=== PATIENT | male | born 1945 | race Caucasian/White ===

== ENCOUNTER 2018-10-03 06:59 | Inpatient (IN) ==
[2018-10-03] MEDS ORDERED: MORPHINE 4 MG/1 ML VIAL ONE (07:09)
[2018-10-03] MEDS ORDERED: HEPARIN 5,000 UNIT/1 ML VIAL ONE ×2 (07:09→07:51)
[2018-10-03] MEDS ORDERED: ONDANSETRON 4 MG/2 ML VIAL ONE (07:09)
[2018-10-03] MEDS ORDERED: NITROGLYCERIN SL 0.4 MG TABLET SL PRN (07:14)
[2018-10-03] MEDS ORDERED: ASPIRIN 325 MG TABLET PO STA (07:14)
[2018-10-03] MEDS ORDERED: MORPHINE 4 MG/1 ML VIAL IV STA (07:14)
[2018-10-03] MEDS ORDERED: SODIUM CHLORIDE 0.9% 500 ML IV STA (07:14)
[2018-10-03] MEDS ORDERED: HEPARIN 5,000 UNIT/1 ML VIAL IV ONE (07:14)
[2018-10-03] MEDS ORDERED: ONDANSETRON 4 MG/2 ML VIAL IV STA (07:14)
[2018-10-03] MEDS ORDERED: MIDAZOLAM 2 MG/2 ML VIAL ONE (07:39)
[2018-10-03] MEDS ORDERED: LIDOCAINE 1% 20 ML VIAL ONE (07:39)
[2018-10-03] MEDS ORDERED: fentaNYL 100 MCG/2 ML VIAL ONE (07:39)
[2018-10-03] MEDS ORDERED: TIROFIBAN 5,000 MCG/100 ML PREMIX IV ONE (07:50)
[2018-10-03 07:54] LABS: Basophils # 0.1 10*3/uL (0.0-0.2); Basophils % 0.6 % (0.0-0.8); Eosinophils # 0.7 10*3/uL (0.0-0.87); Eosinophils % 6.3 % (0.00-10.9); Hematocrit 46.3 VOL% (42.0-52.0); Hemoglobin 15.3 GM/DL (14.0-18.0); Immature Granulocytes % 0.5 %; Immature Granulocytes Absolute 0.05 #; Lymphocytes # 3.8 10*3/uL (1.4-4.0); Lymphocytes % 36.5 % (21.2-54.2); Mean Corpuscular Hemoglobin 29 PG (27-34); Mean Corpuscular Volume 87.5 FL (87-102); Mean Platelet Volume 9.5 FL (9.6-12.0); Monocytes # 1.3 10*3/uL (0.11-0.8); Monocytes % 12.2 % (1.7-12.7); Neutrophils # 4.5 10*3/uL (1.4-7.4); Neutrophils % 43.9 % (38.7-73.9); Platelet Count 264 T/CUMM (130-400); Red Blood Count 5.29 MC/CUMM (3.8-5.5); Red Cell Distribution Width 12.4 % (9.3-17.3); White Blood Count 10.3 T/CUMM (4-12)
[2018-10-03] MEDS ORDERED: AMIODARONE 150 MG/3 ML VIAL ONE (07:57)
[2018-10-03 08:00] LABS: INR 0.9; Partial Thromboplastin Time 25.7 SECS (0-40)
[2018-10-03] MEDS ORDERED: TIROFIBAN 5,000 MCG/100 ML PREMIX IV SCH (08:00)
[2018-10-03] MEDS ORDERED: DOCUSATE SODIUM 100 MG CAPSULE PO PRN (08:05)
[2018-10-03] MEDS ORDERED: MAGNESIUM SULF RIDER 4 GM in PREMIX 1 EACH IV PRN (08:05)
[2018-10-03] MEDS ORDERED: ONDANSETRON 4 MG/2 ML VIAL IV PRN (08:05)
[2018-10-03] MEDS ORDERED: guaiFENesin/DM ER 600-30 MG TABLET PO PRN (08:05)
[2018-10-03] MEDS ORDERED: diphenhydrAMINE CAP 25 MG CAPSULE PO PRN (08:05)
[2018-10-03] MEDS ORDERED: BISACODYL 5 MG TABLET PO PRN (08:05)
[2018-10-03] MEDS ORDERED: POTASSIUM CHLORIDE 20 MEQ TABLET PO PRN (08:05)
[2018-10-03] MEDS ORDERED: LACTULOSE 20 GM/30 ML UDCUP PO PRN (08:05)
[2018-10-03] MEDS ORDERED: PROMETHAZINE 25 MG TABLET PO PRN (08:05)
[2018-10-03] MEDS ORDERED: MAGNESIUM SULF RIDER 2 GM in PREMIX 1 EACH IV PRN (08:05)
[2018-10-03] MEDS ORDERED: ZALEPLON 5 MG CAPSULE PO PRN (08:05)
[2018-10-03] MEDS ORDERED: ACETAMINOPHEN 325 MG TABLET PO PRN (08:05)
[2018-10-03 08:11] LABS: Albumin 3.9 G/DL (3.4-5.0); Bilirubin,Total 0.6 MG/DL (0.2-1.0); Calcium 9.6 MG/DL (8.5-10.1); Potassium 3.8 MMOL/L (3.5-5.1); Total Protein 7.2 G/DL (6.4-8.3)
[2018-10-03] MEDS ORDERED: TICAGRELOR 90 MG TABLET ONE (08:26)
[2018-10-03 08:30] LABS: Risk Ratio 4.18; VLDL CHOLESTEROL 34.4 MG/DL
[2018-10-03] MEDS ORDERED: SODIUM CHLORIDE 0.45% 1,000 ML IV SCH (08:30)
[2018-10-03] MEDS ORDERED: NON-FORMULARY MEDICATION (Esomeprazole Magnesium [Nexium] 40 MG) PO SCH (09:00)
[2018-10-03] MEDS ORDERED: SODIUM CHLORIDE 0.9% 1,000 ML IV SCH (09:26)
[2018-10-03] MEDS: MULTIVITAMIN (CENTRUM) TABLET PO SCH (10:30)
[2018-10-03] MEDS: ASCORBIC ACID 500 MG TABLET PO SCH (10:30)
[2018-10-03] MEDS: PANTOPRAZOLE 40 MG TABLET PO SCH (10:51)
[2018-10-03] MEDS: MOMETASONE 50 MCG NASAL SPRAY 17 GM BOTTLE BOTH NARES SCH ×2 (10:51→21:15)
[2018-10-03] MEDS: CHOLECALCIFEROL 1,000 UNIT TABLET PO SCH (10:51)
[2018-10-03] MEDS: CARVEDILOL 3.125 MG TABLET PO SCH ×3 (10:51→21:16)
[2018-10-03] MEDS: CAPTOPRIL 6.25 MG TABLET PO SCH ×2 (10:52→17:40)
[2018-10-03 14:09] LABS: CKMB % 13.4 %
[2018-10-03 20:59] LABS: CKMB % 12.4 %
[2018-10-03] MEDS ORDERED: ASPIRIN EC 81 MG TABLET PO SCH (21:00)
[2018-10-03 21:03] LABS: Troponin I 28.5 NG/ML (0.00-0.045)
[2018-10-03] MEDS: ATORVASTATIN 40 MG TABLET PO SCH (21:16)
[2018-10-03] MEDS: TICAGRELOR 90 MG TABLET PO SCH (21:16)
[2018-10-03] MEDS: OMEGA 3 ACID ETHYL ESTERS 1 GM CAPSULE PO SCH (21:16)
[2018-10-04] MEDS: CAPTOPRIL 6.25 MG TABLET PO SCH ×2 (02:01→09:00)
[2018-10-04] MEDS: CARVEDILOL 3.125 MG TABLET PO SCH ×4 (03:29→21:46)
[2018-10-04 05:11] LABS: Basophils % 0.5 % (0.0-0.8); Eosinophils # 0.2 10*3/uL (0.0-0.87); Eosinophils % 2.5 % (0.00-10.9); Hematocrit 37.4 VOL% (42.0-52.0); Hemoglobin 12.6 GM/DL (14.0-18.0); Immature Granulocytes % 0.5 %; Immature Granulocytes Absolute 0.04 #; Lymphocytes # 1.3 10*3/uL (1.4-4.0); Lymphocytes % 15.1 % (21.2-54.2); Mean Corpuscular HGB Conc 33.7 GM/DL (32-36); Mean Corpuscular Hemoglobin 29 PG (27-34); Mean Corpuscular Volume 85.8 FL (87-102); Mean Platelet Volume 9.2 FL (9.6-12.0); Monocytes % 11.4 % (1.7-12.7); Platelet Count 179 T/CUMM (130-400); Red Blood Count 4.36 MC/CUMM (3.8-5.5); Red Cell Distribution Width 12.6 % (9.3-17.3); White Blood Count 8.5 T/CUMM (4-12)
[2018-10-04 05:27] LABS: Calcium 8.2 MG/DL (8.5-10.1); Osmolality,Calculated 279.4 MOS/KG (273-304)
[2018-10-04 05:30] LABS: CKMB % 9.8 %
[2018-10-04 05:33] LABS: Troponin I 18.9 NG/ML (0.00-0.045)
[2018-10-04] MEDS: PANTOPRAZOLE 40 MG TABLET PO SCH (08:30)
[2018-10-04] MEDS: ASCORBIC ACID 500 MG TABLET PO SCH (08:30)
[2018-10-04] MEDS: MOMETASONE 50 MCG NASAL SPRAY 17 GM BOTTLE BOTH NARES SCH ×2 (08:30→21:46)
[2018-10-04] MEDS: TICAGRELOR 90 MG TABLET PO SCH ×2 (08:30→21:46)
[2018-10-04] MEDS: ASPIRIN CHEW 81 MG TABLET PO SCH (08:30)
[2018-10-04] MEDS: MULTIVITAMIN (CENTRUM) TABLET PO SCH (08:30)
[2018-10-04] MEDS: CHOLECALCIFEROL 1,000 UNIT TABLET PO SCH (08:30)
[2018-10-04] MEDS: MIDODRINE 5 MG TABLET PO SCH ×3 (12:42→21:46)
[2018-10-04] MEDS: OMEGA 3 ACID ETHYL ESTERS 1 GM CAPSULE PO SCH (21:46)
[2018-10-04] MEDS: ATORVASTATIN 40 MG TABLET PO SCH (21:46)
[2018-10-05] MEDS: CARVEDILOL 3.125 MG TABLET PO SCH ×2 (03:12→09:06)
[2018-10-05 05:08] LABS: Basophils # 0.1 10*3/uL (0.0-0.2); Basophils % 0.7 % (0.0-0.8); Eosinophils # 0.4 10*3/uL (0.0-0.87); Eosinophils % 5.7 % (0.00-10.9); Hematocrit 36.2 VOL% (42.0-52.0); Hemoglobin 11.8 GM/DL (14.0-18.0); Immature Granulocytes % 0.4 %; Immature Granulocytes Absolute 0.03 #; Lymphocytes # 1.6 10*3/uL (1.4-4.0); Lymphocytes % 22.2 % (21.2-54.2); Mean Corpuscular HGB Conc 32.6 GM/DL (32-36); Mean Corpuscular Hemoglobin 29 PG (27-34); Mean Corpuscular Volume 87.4 FL (87-102); Mean Platelet Volume 9.6 FL (9.6-12.0); Monocytes # 0.9 10*3/uL (0.11-0.8); Monocytes % 12.3 % (1.7-12.7); Neutrophils # 4.1 10*3/uL (1.4-7.4); Neutrophils % 58.7 % (38.7-73.9); Platelet Count 176 T/CUMM (130-400); Red Blood Count 4.14 MC/CUMM (3.8-5.5); Red Cell Distribution Width 12.9 % (9.3-17.3)
[2018-10-05 05:46] LABS: Albumin 2.9 G/DL (3.4-5.0); Bilirubin,Total 0.7 MG/DL (0.2-1.0); Calcium 8.2 MG/DL (8.5-10.1); Total Protein 6.1 G/DL (6.4-8.3)
[2018-10-05] MEDS: CHOLECALCIFEROL 1,000 UNIT TABLET PO SCH (09:06)
[2018-10-05] MEDS: ASCORBIC ACID 500 MG TABLET PO SCH (09:06)
[2018-10-05] MEDS: PANTOPRAZOLE 40 MG TABLET PO SCH (09:06)
[2018-10-05] MEDS: MULTIVITAMIN (CENTRUM) TABLET PO SCH (09:06)
[2018-10-05] MEDS: TICAGRELOR 90 MG TABLET PO SCH (09:07)
[2018-10-05] MEDS: ASPIRIN CHEW 81 MG TABLET PO SCH (09:10)
[2018-10-05] MEDS: MIDODRINE 5 MG TABLET PO SCH (09:10)
[2018-10-05] MEDS: MOMETASONE 50 MCG NASAL SPRAY 17 GM BOTTLE BOTH NARES SCH (09:10)
[2018-10-05 12:49] VITALS: BP 108/63
== END 2018-10-05 14:05 | disposition home or self-care (01) | DRG 246 ==
LOC: N.ED 06:59 → N.EDINP 07:23 → N.CC 09:30 → N.TELES 10-04 13:50
PROVIDERS: ADMIT Internal Medicine Cardiovascular Disease; ATTEND Internal Medicine Cardiovascular Disease
PROC: CLCCHCL (ICD-10-PCS; 2018-10-03 08:15)

== ENCOUNTER 2021-08-02 08:27 | Inpatient (IN) ==
[2021-08-02] MEDS ORDERED: SODIUM CHLORIDE 0.9% 1,000 ML IV STA (09:14)
[2021-08-02 10:33] LABS: Bilirubin,Urine Negative (Negative); Blood, Urine Moderate mg/dL (Negative); Glucose,Urine (UA) Negative (Negative); Ketones,Urine Negative (Negative); Nitrite,Urine Negative (Negative); Protein,Urine Negative; RBC,Urine 1 /HPF (0-4); Urine Appearance CLEAR (Clear); Urine Color Straw (Yellow); Urine Specific Gravity 1.003 (1.001-1.035); Urine Urobilinogen < 2.0 EU/DL (0.2-1.0)
[2021-08-02 10:38] LABS: Basophils % 0.4 % (0.0-0.8); Eosinophils % 0.1 % (0.00-10.9); Hemoglobin 15.5 GM/DL (14.0-18.0); Immature Granulocytes % 2.5 %; Immature Granulocytes Absolute 0.24 #; Lymphocytes # 1.7 10*3/uL (1.4-4.0); Lymphocytes % 17.1 % (21.2-54.2); Mean Corpuscular HGB Conc 31.6 GM/DL (32-36); Mean Platelet Volume 9.1 FL (9.6-12.0); Monocytes % 5.9 % (1.7-12.7); NRBC # 0.04 10*3/uL; Platelet Count 195 T/CUMM (130-400); Red Blood Count 5.16 MC/CUMM (3.8-5.5); Red Cell Distribution Width 15.7 % (9.3-17.3); White Blood Count 9.8 T/CUMM (4-12)
[2021-08-02] MEDS ORDERED: HYDROCORTISONE 100 MG VIAL ONE (10:59)
[2021-08-02] MEDS ORDERED: HYDROCORTISONE 100 MG VIAL IV STA (11:00)
[2021-08-02 11:05] LABS: INR 1.1; PT Patient Result 11.9 SECS (10.5-12.0); Partial Thromboplastin Time 25.4 SECS (23.8-32.1)
[2021-08-02] MEDS ORDERED: GLUCAGON 1 MG VIAL IM PRN (11:13)
[2021-08-02] MEDS ORDERED: ONDANSETRON 4 MG/2 ML VIAL IV PRN (11:13)
[2021-08-02] MEDS ORDERED: DEXTROSE 50% 25 GM/50 ML VIAL IV PRN (11:13)
[2021-08-02 11:15] LABS: Albumin 3.8 G/DL (3.4-5.0); Bilirubin,Total 0.5 MG/DL (0.20-1.00); Osmolality,Calculated 321.3 MOS/KG (273-304); Potassium 4.3 MMOL/L (3.5-5.1); Total Protein 6.8 G/DL (6.4-8.2)
[2021-08-02] MEDS ORDERED: LACTATED RINGERS 1,000 ML IV ONE (11:29)
[2021-08-02] MEDS ORDERED: DESMOPRESSIN 4 MCG/1 ML AMP IV SCH (12:00)
[2021-08-02] MEDS ORDERED: MAGNESIUM CITRATE 300 ML BOTTLE PO ONE (12:06)
[2021-08-02 12:39] LABS: Barbiturates Screen,Urine Negative (Negative); Benzodiazepines Screen,Urine Negative (Negative); Cannabinoid Screen,Urine Negative (Negative); Opiate Screen,Urine Negative (Negative); Phencyclidine Screen,Urine Negative (Negative)
[2021-08-02 12:52] LABS: Free T4 (Free Thyroxine) 1.28 NG/DL (0.76-1.46)
[2021-08-02] MEDS: HYDROCORTISONE 100 MG VIAL IV SCH ×3 (14:43→22:39)
[2021-08-02] MEDS: INSULIN REGULAR 100 UNIT/ML SUBCUT SCH ×3 (14:59→20:53)
[2021-08-02] MEDS: FLUCONAZOLE 100 MG TABLET PO SCH (15:13)
[2021-08-02] MEDS: BISACODYL 5 MG TABLET PO SCH (15:13)
[2021-08-02] MEDS: PANTOPRAZOLE 40 MG TABLET PO SCH ×2 (15:14→20:53)
[2021-08-02] MEDS: DESMOPRESSIN 4 MCG/1 ML AMP SUBCUT SCH (15:14)
[2021-08-02] MEDS: ENOXAPARIN 40 MG/0.4 ML SYRINGE SUBCUT SCH (15:15)
[2021-08-02] MEDS: PIPERACILLIN/TAZOBACTAM 3,375 MG in SODIUM CHLORIDE 0.9% 100 ML IV SCH (16:59)
[2021-08-02] MEDS: VANCOMYCIN INJ 1,000 MG in SODIUM CHLORIDE 0.9% 250 ML IV SCH (17:19)
[2021-08-02] MEDS: DEXTROSE 5% 1,000 ML IV SCH ×2 (17:19→18:56)
[2021-08-02] MEDS: TICAGRELOR 90 MG TABLET PO SCH (20:53)
[2021-08-03] MEDS: DESMOPRESSIN 4 MCG/1 ML AMP SUBCUT SCH ×2 (00:53→14:50)
[2021-08-03] MEDS: DEXTROSE 5% 1,000 ML IV SCH ×3 (01:10→14:50)
[2021-08-03] MEDS: PIPERACILLIN/TAZOBACTAM 3,375 MG in SODIUM CHLORIDE 0.9% 100 ML IV SCH ×4 (03:54→22:01)
[2021-08-03 06:03] LABS: Risk Ratio 3.29; VLDL Cholesterol 34.8 MG/DL
[2021-08-03] MEDS: LEVOTHYROXINE 75 MCG TABLET PO SCH (06:46)
[2021-08-03] MEDS: HYDROCORTISONE 100 MG VIAL IV SCH ×3 (06:47→18:29)
[2021-08-03] MEDS ORDERED: ASPIRIN CHEW 81 MG TABLET PO SCH (09:00)
[2021-08-03] MEDS: PANTOPRAZOLE 40 MG TABLET PO SCH ×3 (10:24→20:49)
[2021-08-03] MEDS: FLUTICASONE 50 MCG NASAL SPRAY 16 GM BOTTLE BOTH NARES SCH (10:24)
[2021-08-03] MEDS: TICAGRELOR 90 MG TABLET PO SCH (10:25)
[2021-08-03] MEDS: ASCORBIC ACID 500 MG TABLET PO SCH (10:25)
[2021-08-03] MEDS: BISACODYL 5 MG TABLET PO SCH (10:25)
[2021-08-03] MEDS: CHOLECALCIFEROL 1,000 UNIT TABLET PO SCH (10:25)
[2021-08-03] MEDS: ROSUVASTATIN 20 MG TABLET PO SCH (10:25)
[2021-08-03] MEDS: FLUCONAZOLE 100 MG TABLET PO SCH (10:25)
[2021-08-03] MEDS: INSULIN REGULAR 100 UNIT/ML SUBCUT SCH ×4 (10:26→21:03)
[2021-08-03] MEDS: ENOXAPARIN 40 MG/0.4 ML SYRINGE SUBCUT SCH (13:45)
[2021-08-03 16:11] LABS: Osmolality, Serum 342 mOsm/kg (275 - 295)
[2021-08-03 16:26] LABS: Osmolality, Urine 132 mOsm/kg (150 - 1150)
[2021-08-03] MEDS ORDERED: LORazepam 2 MG/1 ML VIAL IV PRN (17:03)
[2021-08-03] MEDS: VANCOMYCIN INJ 1,000 MG in SODIUM CHLORIDE 0.9% 250 ML IV SCH (18:28)
[2021-08-03 19:39] LABS: Eosinophils % 0.1 % (0.00-10.9); Hematocrit 34.2 VOL% (42.0-52.0); Hemoglobin 10.7 GM/DL (14.0-18.0); Immature Granulocytes % 1.4 %; Lymphocytes # 0.9 10*3/uL (1.4-4.0); Lymphocytes % 12.1 % (21.2-54.2); Mean Corpuscular HGB Conc 31.3 GM/DL (32-36); Mean Corpuscular Volume 96.3 FL (87-102); Mean Platelet Volume 9.1 FL (9.6-12.0); Monocytes % 3.9 % (1.7-12.7); NRBC # 0.02 10*3/uL; Neutrophils % 82.5 % (38.7-73.9); Platelet Count 130 T/CUMM (130-400); Red Blood Count 3.55 MC/CUMM (3.8-5.5); Red Cell Distribution Width 14.7 % (9.3-17.3); White Blood Count 7.4 T/CUMM (4-12)
[2021-08-03 20:14] LABS: Calcium 8.8 MG/DL (8.5-10.1); Osmolality,Calculated 289.5 MOS/KG (273-304); Potassium 3.2 MMOL/L (3.5-5.1)
[2021-08-03] MEDS ORDERED: POTASSIUM CHLORIDE 20 MEQ TABLET PO PRN (20:30)
[2021-08-04] MEDS: DEXTROSE 5% 1,000 ML IV SCH ×2 (01:08→05:16)
[2021-08-04] MEDS: DESMOPRESSIN 4 MCG/1 ML AMP SUBCUT SCH ×2 (01:08→15:21)
[2021-08-04] MEDS: HYDROCORTISONE 100 MG VIAL IV SCH ×3 (01:08→15:21)
[2021-08-04] MEDS: PIPERACILLIN/TAZOBACTAM 3,375 MG in SODIUM CHLORIDE 0.9% 100 ML IV SCH ×2 (02:12→14:32)
[2021-08-04 05:42] LABS: Eosinophils % 0.2 % (0.00-10.9); Hematocrit 32.8 VOL% (42.0-52.0); Hemoglobin 10.5 GM/DL (14.0-18.0); Immature Granulocytes % 1.2 %; Immature Granulocytes Absolute 0.07 #; Lymphocytes # 0.8 10*3/uL (1.4-4.0); Lymphocytes % 13.3 % (21.2-54.2); Mean Corpuscular Volume 93.4 FL (87-102); Mean Platelet Volume 9.2 FL (9.6-12.0); Monocytes % 4.3 % (1.7-12.7); NRBC # 0.02 10*3/uL; Platelet Count 128 T/CUMM (130-400); Red Blood Count 3.51 MC/CUMM (3.8-5.5); Red Cell Distribution Width 14.6 % (9.3-17.3); White Blood Count 5.6 T/CUMM (4-12)
[2021-08-04] MEDS: LEVOTHYROXINE 75 MCG TABLET PO SCH (05:52)
[2021-08-04 06:30] LABS: Osmolality,Calculated 279.7 MOS/KG (273-304); Potassium 3.8 MMOL/L (3.5-5.1)
[2021-08-04] MEDS: FLUCONAZOLE 100 MG TABLET PO SCH (09:53)
[2021-08-04] MEDS: ROSUVASTATIN 20 MG TABLET PO SCH (09:53)
[2021-08-04] MEDS: CHOLECALCIFEROL 1,000 UNIT TABLET PO SCH (09:53)
[2021-08-04] MEDS: ASCORBIC ACID 500 MG TABLET PO SCH (09:53)
[2021-08-04] MEDS: PANTOPRAZOLE 40 MG TABLET PO SCH (09:53)
[2021-08-04] MEDS: INSULIN REGULAR 100 UNIT/ML SUBCUT SCH ×2 (09:54→12:32)
[2021-08-04] MEDS: FLUTICASONE 50 MCG NASAL SPRAY 16 GM BOTTLE BOTH NARES SCH (09:55)
[2021-08-04] MEDS: BISACODYL 5 MG TABLET PO SCH (11:08)
[2021-08-04 12:21] VITALS: BP 115/68
== END 2021-08-04 16:53 | disposition home health service (06) | DRG 640 ==
LOC: EDBD → EDUNIT# → N.ED 08:27 → N.EDINP 11:12 → SUATTDRO 11:12 → N.TELES 11:39
PROVIDERS: ADMIT Internal Medicine; ATTEND Internal Medicine